=== PATIENT | female | born 1955 | race Caucasian/White ===

== ENCOUNTER → 2016-12-09 | Outpatient (CLI) | payer BC ==
--- NOTE | 2016-12-09 19:37 | EST ---
EXERCISE STRESS No dictation, hang up job MMODL / IJN: [id number] /
--- NOTE | 2016-12-09 19:46 | ECHOS ---
STRESS ECHOCARDIOGRAM Ms. Garcia is a 61 year old female with history of smoking, COPD, being evaluated for chest pain and shortness of breath. Baseline EKG showed sinus rhythm and normal [place] and QRS duration. Blood pressure at rest was 114/57, pulse rate 72. The patient walked on Erlin protocol for 8 minutes and 45 seconds achieving a maximum rate of 147 with blood pressure 198/67. EKGs taken during and after exercise did not reveal any changes to suggest ischemia. FINAL IMPRESSION: 1. Negative stress test. 2. Negative stress echo. MMODL / IJN: [id number] /
== END ==
LOC: RADNMMAIN 08:51
PROVIDERS: ATTEND Family Medicine
DX: R07.9 Chest pain, unspecified (principal)
CPT/HCPCS: 93017; 93350

== ENCOUNTER → 2017-07-28 | Outpatient (CLI) | payer BC ==
--- NOTE | 2017-07-28 12:19 | US ---
EXAMINATION TYPE: US abdomen complete DATE OF EXAM: 07/28/2017 COMPARISON: NONE CLINICAL HISTORY: R10.11 Right Upper Quad pain. EXAM MEASUREMENTS: Liver Length: 13.0 cm Gallbladder Wall: 0.5 cm CBD: 0.7 cm Spleen: 9.7 cm Right Kidney: 11.4 x 4.6 x 5.2 cm Left Kidney: 10.9 x 4.7 x 4.3 cm Pancreas: Portions visualized wnl, partially obscured by bowel gas Liver: wnl Gallbladder: thickened wall, some echogenic foci in wall, stone seen fundally Evidence for sonographic Keen's sign: no CBD: Minimally dilated Spleen: wnl Right Kidney: No hydronephrosis or masses seen Left Kidney: No hydronephrosis or masses seen Upper IVC: wnl Abd Aorta: bifurcation obscured by overlying bowel gas, otherwise wnl The liver is homogenous. The intrahepatic portion of the IVC and visualized proximal and mid abdomin al aorta are within normal limits. Distal aorta bifurcation is obscured by overlying bowel gas. Gallb ladder is seen with diffuse prominent and mildly thickened up to 5 mm. No shadowing mobile gallstone s or pericholecystic fluid is identified. Common bile duct is unremarkable. The visualized portions of the pancreas are homogenous. The spleen is unremarkable. Kidneys are symmetric and free of hydro nephrosis. No renal lesions are seen. IMPRESSION: No gallstones or convincing secondary ultrasound evidence for acute cholecystitis. Mild d iffuse gallbladder wall thickening noted which has fairly broad differential including gallbladder ne oplasm. Consider surgical referral. Advise at minimum ultrasound follow-up in 3-6 months time to reas sess.
== END ==
LOC: RADUSWWP 09:30
PROVIDERS: ATTEND Family Medicine
DX: K82.9 Disease of gallbladder, unspecified (principal)
CPT/HCPCS: 76700

== ENCOUNTER 2017-10-12 10:34 | Day surgery (SDC) | payer BC ==
[2017-10-04 13:41] VITALS: BMI 28.8
--- NOTE | 2017-10-12 07:26 | P.GSHP ---
History of Present Illness H&P Date: 10/12/17 CHIEF COMPLAINT: Cholecystitis HISTORY OF PRESENT ILLNESS: The patient is a 62-year-old female who presents with history of epigastric including right upper quadrant abdominal pain. She underwent diagnostic studies for her gallbladder. Separately her clinical picture was consistent with cholecystitis. Now she presents for surgical intervention. PAST MEDICAL HISTORY: Please see list PAST SURGICAL HISTORY: Please see list MEDICATIONS: Please see list ALLERGIES: Denies. SOCIAL HISTORY: No illicit drug use FAMILY HISTORY: Pertinent for gallbladder disease REVIEW OF ORGAN SYSTEMS: CONSTITUTIONAL: No reports of fevers or chills. HEENT: Denies any troubles with the vision or hearing. HEMATOLOGIC: No personal or family history of DVTs or pulmonary emboli. PHYSICAL EXAM: VITAL SIGNS: Afebrile vital signs stable GENERAL: Well-developed pleasant in no acute distress. HEENT: No scleral icterus. Extraocular movements grossly intact. Moist buccal mucosa. NECK: Supple without lymphadenopathy. CHEST: Unlabored respirations. Equal bilateral excursions. CARDIOVASCULAR: Regular rate regular rhythm rhythm. Distal 2+ pulses. ABDOMEN: Soft, nondistended. Tender along the epigastrium and right upper quadrant. MUSCULOSKELETAL: No clubbing, cyanosis, or edema. NEURO: Cranial nerves II to XII within normal limits. No focal or lateralizing signs. PSYCH: Alert and oriented to person, place and time. ASSESSMENT: 1. Epigastric and right upper quadrant abdominal pain 2. Chronic cholecystitis PLAN: 1. Will need a robotic cholecystectomy possible open. Benefits and risks were described. 2. Heparin for DVT prophylaxis 5000 units. 3. Antibiotic prophylaxis. Past Medical History Past Medical History: Asthma, Thyroid Disorder Additional Past Medical History / Comment(s): Intermittent upper abd pain History of Any Multi-Drug Resistant Organisms: None Reported Past Surgical History: Section Past Anesthesia/Blood Transfusion Reactions: Postoperative Nausea & Vomiting ( PONV) Smoking Status: Former smoker - Past Family History Mother Family Medical History: No Reported History Medications and Allergies Home Medications Medication Instructions Recorded Confirmed Type Albuterol Nebulized [Ventolin 2.5 mg INHALATION BID 10/04/17 10/04/17 History Nebulized] Levothyroxine Sodium [Synthroid] 125 mcg PO QAM 10/04/17 10/04/17 History Allergies Allergy/AdvReac Type Severity Reaction Status Date / Time No Known Allergies Allergy Verified 10/04/17 10:57
[~2017-10-12 10:34] MED LIST: DEXAMETHASONE SOD PHOSPHATE 10 MG/ML 1 ML VIAL IV ONE; HEPARIN SODIUM,PORCINE 5,000 UNIT/ML 1 ML VIAL SQ ONE; INDOCYANINE GREEN 25 MG VIAL IV STA; LACTATED RINGERS 1,000 ML IV SCH; ONDANSETRON 4 MG/2 ML VIAL IVP ONE; ceFAZolin IN SWFI 2 GM/20 ML SYRINGE IVP ONE
[2017-10-12] MEDS ORDERED: LACTATED RINGERS 1,000 ML IV ONE ×2 (10:50→13:50)
[2017-10-12] MEDS ORDERED: LIDOCAINE 1% 20 ML VIAL (10MG/ML) FOR IV START INTRADERMA ONE (10:54)
[2017-10-12] MEDS ORDERED: DEXAMETHASONE SOD PHOS (MDV) 100 MG/10 ML VIAL IVP ONE (10:55)
[2017-10-12] MEDS ORDERED: ALBUTEROL NEBULIZED 2.5 MG/3 ML INHALATION STA (11:26)
[2017-10-12] MEDS ORDERED: MIDAZOLAM 2 MG/2 ML VIAL IVP ONE (11:31)
[2017-10-12] MEDS ORDERED: GLYCOPYRROLATE 0.2 MG/ML 2 ML VIAL ONE (12:50)
[2017-10-12] MEDS ORDERED: KETOROLAC 30 MG/ML 1 ML VIAL ONE (12:50)
[2017-10-12] MEDS ORDERED: MIDAZOLAM 2 MG/2 ML VIAL ONE (12:50)
[2017-10-12] MEDS ORDERED: ROCURONIUM BROMIDE 10 MG/ML 10 ML VIAL IV ONE (12:50)
[2017-10-12] MEDS ORDERED: SUCCINYLCHOLINE CHLORIDE 100 MG/5 ML SYR IV ONE (12:50)
[2017-10-12] MEDS ORDERED: LIDOCAINE 1% INJ 10MG/ML (20 ML MDV) ONE (12:50)
[2017-10-12] MEDS ORDERED: INDOCYANINE GREEN 25 MG VIAL IV ONE (12:50)
[2017-10-12] MEDS ORDERED: PROPOFOL 10 MG/ML 20 ML VIAL IV ONE (12:50)
[2017-10-12] MEDS ORDERED: ONDANSETRON 4 MG/2 ML VIAL ONE (12:50)
[2017-10-12] MEDS ORDERED: fentaNYL (PF) 50 MCG/ML 2 ML AMP ONE (12:50)
[2017-10-12] MEDS ORDERED: NEOSTIGMINE 1 MG/ML 10 ML VIAL ONE (12:50)
[2017-10-12] MEDS ORDERED: BUPIVACAINE (PF) 0.5% 30 ML VIAL SQ ONE (13:12)
--- NOTE | 2017-10-12 13:57 | P.OP ---
Date of Procedure: 10/12/17 Description of Procedure: SURGEON: AUGUSTUS QUINONEZ MD [employer] COUNSEL: LACEY SEGOVIA PREOPERATIVE DIAGNOSES: 1. Right upper quadrant abdominal pain 2. Chronic cholecystitis 3. Asthma 4. Hypothyroidism POSTOPERATIVE DIAGNOSES: 1. Right upper quadrant abdominal pain 2. Chronic cholecystitis 3. Asthma 4. Hypothyroidism OPERATION: Robotic-assisted da Delmar Xi laparoscopic cholecystectomy, multiport with FIREFLY ESTIMATED BLOOD LOSS: 5 mL. SPECIMENS REMOVED: Gallbladder. COMPLICATIONS: None. OPERATIVE FINDINGS: 1. Chronic cholecystitis INDICATIONS: The patient is a 62-year-old female who presents with cholelcystitis. Surgical intervention with a laparoscopic cholecystectomy was described at length including injury to the biliary tree, bleeding, infection, need for further surgery. Informed consent was obtained. Robotic assisted laparoscopic approach was described. Benefits and risks of the procedure including but not limited to bleeding, infection, injury to the biliary tree was described. Informed consent was obtained. DESCRIPTION OF PROCEDURE: Patient was brought to the operating room, placed in supine position. After general induction, the abdomen had been prepped and draped in standard sterile fashion. The robotic da Delmar XI system was primed. After a timeout protocol was performed, the patient had been prepped and draped in standard sterile fashion. The patient was injected with indocyanine green. A 5 mm 0 degrees laparoscopic trocar entry was performed along the left upper quadrant. The abdomen insufflated to 15 mmHg pressure which she tolerated well. Diagnostic laparoscopy demonstrated no injury to bowel viscera or mesentery. The liver surface was unremarkable. Next, two 8 mm robotic ports were placed along the right upper abdomen. The camera 8-mm port was maintained along the epigastrium. Another 8 mm port was placed along the left upper abdominal wall after exchanging the 5 mm port. Please note that the ports were placed at least 10 to 15 cm away from the target anatomy of the gallbladder. The robot was docked along the left lateral abdomen. The patient was repositioned in reverse Trendelenburg position. Using a grasper for arm 3, a grasper for arm 4, including hook cautery for arm 1 , the robotic system was docked and primed as described. Instruments were interchanged by the printing assistant including hook cautery, Bovie cautery and clip appliers. I had sat at the console. Adhesions were identified along the infundibulum of the gallbladder and addressed using hook cautery. The gallbladder fundus was retracted over the dome of the liver. Initial attention was brought to the infundibulum which was gently retracted in the inferior lateral approach. Using a grasper, the cystic duct including the cystic artery was carefully skeletonized. FIREFLY was used to identify the cystic artery and cystic structures. Large PLASTIC clips were used throughout the entire case. Using a clip industrial relations director 2 clips were placed proximally, and 1 clip was placed distally along the cystic duct and then cauterized with the cautery. Again care was taken to avoid any injury to the biliary tree as the common bile duct was clearly visualized during this portion of dissection. Next, the cystic artery was similarly clipped and cauterized. Electro-Bovie cautery was used to remove the gallbladder from the hepatic fossa. Hemostasis was checked and found to be adequate. The robot was undocked. I re-scrubbed into the case. Using a 10 mm Endo Catch bag via the left upper quadrant incision, the specimen was removed from the abdominal cavity. All pneumoperitoneum instruments were evacuated from the abdominal cavity. The incisions were reapproximated using 4-0 Monocryl in an interrupted subcuticular fashion. Fascial defects were less than 8 mm in size. Please note along the trocar sites, local anesthetic was placed as a field block prior to insertion of all instruments. Liquid glue was applied to the skin. At the end of the procedure needle, sponge, and instrument count had been verified correct by the surgical pathologist. The patient was transferred to postanesthesia care unit in stable condition. Intraoperative films were shared with the patient's family who were very pleased with the level of care. Console time 20 minutes Plan - Discharge Summary New Discharge Prescriptions: New HYDROcodone/APAP 5-325MG [Hamilton 5-325] 1 tab PO Q4HR PRN 3 Days #18 tab PRN Reason: Pain Ibuprofen [Motrin] 600 mg PO Q8HR PRN #20 tab PRN Reason: Pain No Action Levothyroxine Sodium [Synthroid] 125 mcg PO QAM Albuterol Nebulized [Ventolin Nebulized] 2.5 mg INHALATION BID Discharge Medication List Albuterol Nebulized [Ventolin Nebulized] 2.5 mg INHALATION BID 10/04/17 [History ] Levothyroxine Sodium [Synthroid] 125 mcg PO QAM 10/04/17 [History] HYDROcodone/APAP 5-325MG [Hamilton 5-325] 1 tab PO Q4HR PRN 3 Days #18 tab [Rx] Ibuprofen [Motrin] 600 mg PO Q8HR PRN #20 tab 10/12/17 [Rx] Patient Instructions/Handouts: Laparoscopic Cholecystectomy (DC) Activity/Diet/Wound Care/Special Instructions: May shower. No bath tub soaks. No lifting over 4 pounds in 1 week Discharge Disposition: HOME SELF-CARE
[2017-10-12] MEDS: HYDROmorphone 0.5 MG/0.5 ML SYRINGE IVP PRN ×2 (14:06→14:11)
[2017-10-12 14:17] VITALS: TEMP 97.3
[2017-10-12] MEDS ORDERED: diphenhydrAMINE 50 MG/ML 1 ML VIAL IVP ONE (14:21)
[2017-10-12] MEDS ORDERED: ALBUTEROL NEBULIZED 2.5 MG/3 ML INHALATION ONE (14:25)
[2017-10-12 14:49] VITALS: RESP 16
[2017-10-12] MEDS ORDERED: HYDROcodone/APAP 5-325MG 1 EACH TAB PO ONE (15:30)
[2017-10-12 15:59] VITALS: BP 125/74; PULSE 59
== END 2017-10-12 16:39 | disposition home or self-care (01) ==
LOC: OR 10:34
PROVIDERS: ATTEND Surgery Plastic and Reconstructive Surgery
DX: K81.1 Chronic cholecystitis (principal); J45.909 Unspecified asthma, uncomplicated; E03.9 Hypothyroidism, unspecified; Z79.890 Hormone replacement therapy; Z79.51 Long term (current) use of inhaled steroids; Z87.891 Personal history of nicotine dependence
CPT/HCPCS: 94640; 88304; 47562; J2250; J1200; J1644; J2710; J2405; J2001; J3010; J1885; J1100; J0330; J2704; J1170; J0690

== ENCOUNTER → 2017-11-14 | Outpatient (CLI) | payer BC ==
--- NOTE | 2017-11-14 16:04 | US ---
EXAMINATION TYPE: US abdomen complete DATE OF EXAM: 11/14/2017 COMPARISON: US CLINICAL HISTORY: K91.5 Post elyse syndrome; one episode of RUQ pain after eating [employer] [place]; po st laparoscopy/cholecystectomy October 2017 EXAM MEASUREMENTS: Liver Length: 12.8 cm Gallbladder Wall: surgically removed CBD: 0.6 cm Spleen: 9.4 cm Right Kidney: 10.5 x 4.5 x 4.9 cm Left Kidney: 10.2 x 4.9 x 4.2 cm Pancreas: wnl Liver: wnl Gallbladder: surgically removed Evidence for sonographic Keen's sign: no CBD: wnl Spleen: wnl Right Kidney: No hydronephrosis or masses seen Left Kidney: No hydronephrosis or masses seen Upper IVC: wnl Abd Aorta: wnl IMPRESSION: 1. Normal postcholecystectomy abdomen ultrasound.
== END | disposition home or self-care (01) ==
LOC: RADUSWWP 10:47
PROVIDERS: ATTEND Family Medicine
DX: K91.5 Postcholecystectomy syndrome (principal); Z90.49 Acquired absence of other specified parts of digestive tract
CPT/HCPCS: 76700

== ENCOUNTER → 2021-01-29 | Outpatient (CLI) | payer BC ==
--- NOTE | 2021-02-02 09:21 | MM ---
Reason for exam: screening (asymptomatic). Last mammogram was performed 7 years and 3 months ago. History: Patient is postmenopausal. Took hormonal contraceptives for 2 years. Physical Findings: A clinical breast exam by your physician is recommended on an annual basis and results should be correlated with mammographic findings. MG Screening Mammo w CAD Bilateral CC and MLO view(s) were taken. XCCL view(s) were taken of the right breast. Prior study comparison: November 12, 2013, bilateral MG screening mammo w CAD. There are scattered fibroglandular densities. Finding: There are intermediate concern, suspicious, fine grouped/clustered calcifications in the upper outer quadrant, middle position of the right breast. New finding since November 12, 2013. ASSESSMENT: Incomplete: need additional imaging evaluation, BI-RAD 0 RECOMMENDATION: Special view mammogram of the right breast. [facility] will attempt to contact patient to return for supplemental views.
== END | disposition home or self-care (01) ==
LOC: RADMAMWWP 15:24
PROVIDERS: ATTEND Family Medicine
DX: Z12.31 Encounter for screening mammogram for malignant neoplasm of breast (principal); Z78.0 Asymptomatic menopausal state
CPT/HCPCS: 77067

== ENCOUNTER → 2021-02-19 | Outpatient (CLI) | payer BC ==
--- NOTE | 2021-02-19 14:51 | USB ---
EXAMINATION TYPE: US breast limited RT DATE OF EXAM: 02/19/2021 COMPARISON: Mammogram same date,, 01/29/2021, 11/12/2013 CLINICAL HISTORY: R92.8 abnormal mammogram. Findings: The right breast was scanned with ultrasound from 9-12 o'clock and in the axilla without sonographic correlate for the right breast mass with calcifications seen on mammogram. IMPRESSION: No definite sonographic correlate for right breast mass and calcifications seen on mammogram. Stereot actic biopsy is recommended. BI-RADS 4, suspicious.
--- NOTE | 2021-02-22 09:14 | MM ---
Reason for exam: additional evaluation requested from abnormal screening. Last mammogram was performed 1 month ago. History: Patient is postmenopausal. Took hormonal contraceptives for 2 years. Physical Findings: Nurse did not find any significant physical abnormalities on exam. MG Work Up Mamm w CAD RT Spot compression CC, spot compression MLO, CC with magnification, MLO with magnification, and ML view(s) were taken of the right breast. Prior study comparison: January 29, 2021, bilateral MG screening mammo w CAD. November 12, 2013, bilateral MG screening mammo w CAD. There are scattered fibroglandular densities. There is a 1.6cm mass in the right upper outer quadrant posterior depth with heterogeneous calcifications and ultrasound is recommended. These results were verbally communicated with the patient and result sheet given to the patient on 02/19/21. ASSESSMENT: Incomplete: need additional imaging evaluation, BI-RAD 0 RECOMMENDATION: Ultrasound of the right breast.
== END | disposition home or self-care (01) ==
LOC: RADMAMWWP 13:29
PROVIDERS: ATTEND Family Medicine
DX: N63.11 Unspecified lump in the right breast, upper outer quadrant (principal); R92.1 Mammographic calcification found on diagnostic imaging of breast
CPT/HCPCS: 77065

== ENCOUNTER → 2021-03-15 | Day surgery (SDC) | payer BC ==
[2021-03-15 07:09] VITALS: RESP 16; TEMP 98.6
[2021-03-15 08:40] VITALS: BP 165/79; PULSE 81
--- NOTE | 2021-03-15 11:24 | MM ---
Stereotactic Mammotome core biopsy right breast. HISTORY: microcalcifications The microcalcifications in question within the right breast were targeted by the undersigned. Procedure was performed by the undersigned. Informed consent was obtained and all of the patients questions were answered. The standard sterile technique was utilized and appropriate local anesthesia was obtained with 1% licocaine. Mammotome probe was advanced and multiple core samples were obtained and sent to pathology for interpretation. Microclip marker was deployed at the site of biopsy. Post procedural mammogram demonstrates appropriate deployment of radiopaque clip marker. The patient tolerated the procedure well and left the department in stable condition. Pathology results are pending. IMPRESSION: Successful stereotactic core biopsy right breast with pathology results pending. 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 See Surgical Pathology Cancer Case Summary and Comment. Recommendation Surgical consult of the right breast. BERNADINE
== END ==
LOC: RADMAMWWP 06:58
PROVIDERS: ATTEND Surgery
DX: D05.11 Intraductal carcinoma in situ of right breast (principal)
CPT/HCPCS: 88305; 88342; 88341; 19081; A4648; J2001

== ENCOUNTER 2021-04-23 06:23 | Day surgery (SDC) | payer BC ==
[2021-04-16 11:39] VITALS: BMI 29.8
[~2021-04-23 06:23] MED LIST changes: +ACETAMINOPHEN TAB 500 MG TAB PO PRN; -DEXAMETHASONE SOD PHOSPHATE 10 MG/ML 1 ML VIAL IV ONE; +DEXAMETHASONE SOD PHOSPHATE 4 MG/ML 1 ML VIAL IV ONE; -HEPARIN SODIUM,PORCINE 5,000 UNIT/ML 1 ML VIAL SQ ONE; +HEPARIN SODIUM,PORCINE/PF 5,000 UNIT/0.5 ML SYRINGE SQ PRN; -INDOCYANINE GREEN 25 MG VIAL IV STA; +LIDOCAINE 1% (10MG/ML) FOR IV START INTRADERMA PRN; +MIDAZOLAM 2 MG/2 ML VIAL IV PRN; +Pre Op ABX Message 1 EACH MISC MISCELLANE ONE; -ceFAZolin IN SWFI 2 GM/20 ML SYRINGE IVP ONE
[2021-04-23 06:50] VITALS: RESP 16
[2021-04-23] MEDS ORDERED: ALPRAZolam 0.25 MG TAB ONE (06:54)
[2021-04-23] MEDS ORDERED: SCOPOLAMINE 1.5MG/72HR PATCH TRANSDERM ONE (07:11)
[2021-04-23] MEDS ORDERED: LIDOCAINE 1% INJ 10MG/ML (20 ML MDV) SQ ONE (08:09)
[2021-04-23] MEDS ORDERED: DEXAMETHASONE SOD PHOSPHATE 4 MG/ML 1 ML VIAL IVP ONE (08:45)
[2021-04-23] MEDS ORDERED: PROPOFOL 10 MG/ML 20 ML VIAL IV ONE (08:46)
[2021-04-23] MEDS ORDERED: LIDOCAINE 1% INJ 10MG/ML (20 ML MDV) ONE (08:46)
[2021-04-23] MEDS ORDERED: MIDAZOLAM 2 MG/2 ML VIAL ONE (08:46)
[2021-04-23] MEDS ORDERED: fentaNYL (PF) 50 MCG/ML 2 ML AMP ONE (08:46)
[2021-04-23] MEDS ORDERED: SODIUM CHLORIDE 0.9% 100 ML with ceFAZolin 2,000 MG IV ONE ×2 (09:00)
[2021-04-23] MEDS ORDERED: BUPIVACAINE (PF) 0.25% 30 ML VIAL SQ ONE (09:17)
[2021-04-23 09:53] VITALS: TEMP 96.9
[2021-04-23] MEDS ORDERED: NALOXONE 0.4 MG/ML 1 ML VIAL IV PRN (10:00)
[2021-04-23] MEDS ORDERED: HYDROcodone/APAP 5-325MG 1 EACH TAB PO PRN (10:00)
--- NOTE | 2021-04-23 10:03 | P.OP ---
Date of Procedure: 04/23/21 Procedure(s) Performed: PREOPERATIVE DIAGNOSIS: Right breast cancer POSTOPERATIVE DIAGNOSIS: Same PROCEDURE: Right Breast wire localization lumpectomy SURGEON: Noé EBL: Minimal ANESTHESIA: General COMPLICATIONS: None OPERATIVE PROCEDURE: Patient was placed on the operating room table in the supine position. The wire entrance site was then addressed. This was present at the 9:00 location. A curvilinear incision was made adjacent to the wire entrance site. I followed the wire down into the breast tissue. An adequate lumpectomy specimen then took place around the wire. Margins of 1.5-2 cm worth attempted to be achieved. Palpation of the specimen suggested that the posterior and medial margins were somewhat close. I took an additional margin posteriorly and medially and these margins were painted the appropriate color on the new margin side. The initial specimen was also painted the appropriate 6 colors. Clips were used to identify the lumpectomy cavity. The clip was confirmed to be within the lumpectomy specimen by radiology. The subcutaneous tissues were closed using 3-0 Vicryl sutures. The skin was closed using a running 4-0 Monocryl stitch. Skin glue was then applied. DISPOSITION: Stable to recovery room
[2021-04-23] MEDS: HYDROmorphone 0.5 MG/0.5 ML SYRINGE IVP PRN ×3 (10:05→10:21)
[2021-04-23] MEDS ORDERED: ALBUTEROL NEBULIZED 2.5 MG/3 ML INHALATION ONE (10:37)
[2021-04-23 11:21] VITALS: BP 131/79; PULSE 75
--- NOTE | 2021-04-23 15:52 | MM ---
EXAMINATION TYPE: MG pre op needle loc RT DATE OF EXAM: 04/23/2021 COMPARISON: NONE CLINICAL HISTORY: DCIS by core biopsy TECHNIQUE: Needle localization with wire placement and surgical excision of area of concern in the ri t breast. FINDINGS: The procedure of needle localization with wire placement for surgical excision was explaine d to the patient. Risk, benefits, and alternatives were discussed. An informed consent was then obt ained. A timeout was performed. The overlying skin was prepped and draped in usual sterile fashion. Lidocaine 1% was used as anesthe tic into the skin and subcutaneous tissue up to the level of area of concern. A 7 cm needle was used . This was placed via a lateral approach under mammographic guidance. Subsequent 90 degrees mammogr am show the needle to be in satisfactory position relative to the targeted area. Targeted area includ es both the core marker clip and calcifications which remained present following the prior biopsy. Th e wire was placed through the needle and the needle was withdrawn. The wire was fixed to patient's s kin. Images were marked for surgeon. The patient tolerated the procedure well without any immediate complication. Specimen: The wire and the targeted calcifications and core marker are identified within the specimen mammogram. Report was called to the OR. IMPRESSION: 1. Successful wire localization and excision. Recommendations: 1. Recommendations are pending pathology results.
== END 2021-04-23 11:57 | disposition home or self-care (01) ==
LOC: OR 06:23
PROVIDERS: ATTEND Surgery
DX: C50.911 Malignant neoplasm of unspecified site of right female breast (principal)
CPT/HCPCS: 19281; 76098; J2250; J1100; J2405; J0690; J2001; J3010; J2704; J1170; J1644

== ENCOUNTER 2021-06-03 11:15 | Day surgery (SDC) | payer BC ==
[~2021-06-03 11:15] MED LIST changes: -ACETAMINOPHEN TAB 500 MG TAB PO PRN; +HYDROmorphone 0.5 MG/0.5 ML SYRINGE IVP PRN; -LIDOCAINE 1% (10MG/ML) FOR IV START INTRADERMA PRN; -MIDAZOLAM 2 MG/2 ML VIAL IV PRN; +ONDANSETRON 4 MG/2 ML VIAL IVP PRN
[2021-06-03] MEDS ORDERED: LACTATED RINGERS 1,000 ML IV ONE ×3 (11:59)
--- NOTE | 2021-06-03 12:38 | P.GSHP ---
History of Present Illness H&P Date: 06/03/21 Chief Complaint: Right breast cancer 66-year-old female known to our service. Underwent right breast lumpectomy 04/23. Patient found to have a 1.7 cm low to intermediate grade DCIS. Patient had close margins both anteriorly and posteriorly. New posterior margin was taken at the time of surgery. Patient requires re-lumpectomy of the anterior margin. Patient had canceled a surgery previously for I believe Covid exposure. Past Medical History Past Medical History: Asthma, Cancer, COPD, Thyroid Disorder Additional Past Medical History / Comment(s): RT BREAST CANCER, constipation, History of Any Multi-Drug Resistant Organisms: None Reported Past Surgical History: Bladder Surgery, Breast Surgery, Section, Cholecystectomy, Hysterectomy, Tonsillectomy Additional Past Surgical History / Comment(s): CYSTOCELE/RECTOCELE/HYSTERECTOMY/BLADDER SLING-03/24/21. REVISION BLADDER SLING 04/14/21-DEANN SEGURA. rt breast lumpectomy 04/23/21 Past Anesthesia/Blood Transfusion Reactions: Postoperative Nausea & Vomiting (PONV) Additional Past Anesthesia/Blood Transfusion Reaction / Comment(s): vomiting all day after last surgery 04/2021 Smoking Status: Former smoker - Past Family History Mother Family Medical History: Diabetes Mellitus Brother(s) Family Medical History: Deep Vein Thrombosis (DVT) Medications and Allergies Home Medications Medication Instructions Recorded Confirmed Type Albuterol Nebulized [Ventolin 2.5 mg INHALATION BID PRN 10/04/17 06/03/21 History Nebulized] Levothyroxine Sodium [Synthroid] 125 mcg PO QAM 10/04/17 06/03/21 History Fluticasone/Vilanterol [Breo 1 inhalation PO Q24HR 03/05/21 06/03/21 History Ellipta 100-25 Mcg Inhaler] Mometasone/Formoterol [Dulera 100 1 puff PO DIRECTED PRN 06/02/21 06/03/21 History Mcg-5 Mcg Inhaler] Trospium Chloride [Sanctura XR] 60 mg PO DAILY 06/02/21 06/03/21 History Allergies Allergy/AdvReac Type Severity Reaction Status Date / Time No Known Allergies Allergy Verified 06/03/21 12:08 Surgical - Exam Vital Signs Temp Pulse Resp BP Pulse Ox 97.7 F 85 16 140/84 96 06/03/21 12:16 06/03/21 12:16 06/03/21 12:16 06/03/21 12:16 06/03/21 12:16 Physical exam: General: Well-developed, well-nourished HEENT: Normocephalic, sclerae nonicteric Right breast: Recent scar noted, no adenopathy Left breast: No masses, no adenopathy Abdomen: Nontender, nondistended Extremities: No edema Neuro: Alert and oriented Assessment and Plan (1) DCIS (ductal carcinoma in situ) of breast Narrative/Plan: Will proceed with right breast re-lumpectomy anterior margin at this time. Risks of bleeding, infection, scarring, findings of additional malignancy reviewed, positive margins, possible need for further procedures reviewed. She understands and wishes to proceed. Current Visit: Yes Status: Acute Code(s): D05.10 - INTRADUCTAL CARCINOMA IN SITU OF UNSPECIFIED BREAST SNOMED Code(s): 313724454
[2021-06-03] MEDS ORDERED: fentaNYL (PF) 50 MCG/ML 2 ML AMP ONE (13:55)
[2021-06-03] MEDS ORDERED: diphenhydrAMINE 50 MG/ML 1 ML VIAL ONE ×2 (13:55→15:41)
[2021-06-03] MEDS ORDERED: LIDOCAINE 1% INJ 10MG/ML (20 ML MDV) ONE (13:55)
[2021-06-03] MEDS ORDERED: PROPOFOL 10 MG/ML 20 ML VIAL IV ONE (13:55)
[2021-06-03] MEDS ORDERED: MIDAZOLAM 2 MG/2 ML VIAL ONE (13:55)
[2021-06-03] MEDS ORDERED: BUPIVACAIN-EPI 0.25%-1:200,000 30 ML VIAL SQ ONE ×2 (13:59→14:16)
[2021-06-03] MEDS ORDERED: SODIUM CHLORIDE 0.9% 100 ML with ceFAZolin 2 GM IV ONE ×2 (14:15)
[2021-06-03] MEDS ORDERED: NALOXONE 0.4 MG/ML 1 ML VIAL IV PRN (14:42)
--- NOTE | 2021-06-03 14:45 | P.OP ---
Date of Procedure: 06/03/21 Procedure(s) Performed: PREOPERATIVE DIAGNOSIS: Right breast cancer POSTOPERATIVE DIAGNOSIS: Same PROCEDURE: Right Breast re-lumpectomy SURGEON: Noé EBL: 20 mL ANESTHESIA: General COMPLICATIONS: None OPERATIVE PROCEDURE: Patient was placed on the operating room table in the supine position. The patient's right breast was prepped and draped sterilely. The previous incision was re-incised. Entrance into the lumpectomy cavity took place. The seroma fluid was evacuated. The anterior margin was then excised using electrocautery. This measured 5 x 5 x 1 cm. The new margin was painted blue. Clips were used to delineate the new margins in the lumpectomy itself. Irrigation took place. No bleeding was seen. The subcutaneous tissues were closed using 3-0 Vicryl sutures. The skin was closed using a running 4-0 Monocryl stitch. Skin glue was then applied. DISPOSITION: Stable to recovery room
[2021-06-03 15:03] VITALS: TEMP 97
[2021-06-03] MEDS ORDERED: diphenhydrAMINE 50 MG/ML 1 ML VIAL IVP ONE (15:45)
[2021-06-03] MEDS ORDERED: ONDANSETRON 4 MG/2 ML VIAL IVP ONE (16:30)
[2021-06-03 16:48] VITALS: RESP 20
[2021-06-03 17:04] VITALS: BP 136/81; PULSE 70
== END 2021-06-03 17:44 | disposition home or self-care (01) ==
LOC: OR 11:15
PROVIDERS: ATTEND Surgery
DX: D05.11 Intraductal carcinoma in situ of right breast (principal); J44.9 Chronic obstructive pulmonary disease, unspecified; I10 Essential (primary) hypertension; E07.9 Disorder of thyroid, unspecified; K59.00 Constipation, unspecified; Z98.890 Other specified postprocedural states; Z98.891 History of uterine scar from previous surgery; Z90.49 Acquired absence of other specified parts of digestive tract; Z90.89 Acquired absence of other organs; Z90.710 Acquired absence of both cervix and uterus; Z87.891 Personal history of nicotine dependence; Z79.899 Other long term (current) drug therapy; Z79.890 Hormone replacement therapy; Z83.3 Family history of diabetes mellitus
CPT/HCPCS: 88307; 19301; J2250; J1200; J0690; J2405; J2001; J3010; J2704; J1170

== ENCOUNTER → 2022-01-19 | Outpatient (CLI) | payer BC ==
--- NOTE | 2022-01-19 09:53 | MM ---
Reason for Exam: Hx of breast cancer, conservation therapy. Last screening mammogram was performed 12 month(s) ago. Patient History: Menarche at age 16. First Full-Term at age 21. Hysterectomy at age 66. Postmenopausal. Patient has history of breast feeding. Breast cancer, right, age 66. Previous chest radiation therapy at age 66. Patient used Hormonal Contraceptives for 2 years. 04/23/2021, Lumpectomy on the Right side. 04/23/2021, Malignant Core Biopsy on the right side. 03/15/2021, Malignant Core Biopsy on the right side. Prior Study Comparison: 11/12/2013 Bilateral Screening Mammogram, [facility]. 01/29/2021 Bilateral Screening Mammogram, [facility]. 02/19/2021 Right Diagnostic Mammogram, [facility]. Tissue Density: There are scattered fibroglandular densities. Findings: Analyzed By CAD. Postsurgical and posttreatment changes right breast. No recurrent microcalcifications are seen. No other discrete abnormality identified. Ongoing shorter term follow-up recommended on the right. Overall Assessment: Probably benign, BI-RAD 3 Management: Diagnostic Mammogram of the right breast in 6 months. To assess for any evolving posttreatment change. Patient should continue monthly self breast exams. Results were given to the patient verbally at the time of exam. Electronically signed and approved by: Jez Valles M.D. Radiologist
== END | disposition home or self-care (01) ==
LOC: RADMAMWWP 08:50
PROVIDERS: ATTEND Radiology Radiation Oncology
DX: D05.11 Intraductal carcinoma in situ of right breast (principal); Z78.0 Asymptomatic menopausal state; Z85.3 Personal history of malignant neoplasm of breast; Z98.890 Other specified postprocedural states
CPT/HCPCS: 77066

== ENCOUNTER → 2022-03-04 | Outpatient (CLI) | payer BC ==
--- NOTE | 2022-03-04 13:57 | BD ---
EXAMINATION TYPE: Axial Bone Density DATE OF EXAM: 03/04/2022 COMPARISON: 11-12-2013 CLINICAL HISTORY: 67 years year old Female. 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 Secondary Osteoporosis: YES 2. Hyperthyroidism: YES RISK FACTORS HISTORY OF: Family History of Osteoporosis: UNKNOWN Active: YES Postmenopausal woman: YES MEDICATIONS: Prednisone or other steroids: YES How Long: OFF AND ON FOR 10 YEARS Thyroid Medications: Which medication: Levothyroxine How Lon YEARS Additional Medications: HORMONE GRISELDA Additional History: RT BREAST CANCER WITH RADIATION EXAM MEASUREMENTS: Bone mineral densitometry was performed using the [employer] System. Bone mineral density as measured about the Lumbar spine is: ----- L1-L4(G/cm2): 1.195 T Score Values are as follows: ----- L1: -0.5 ----- L2: -0.6 ----- L3: 0.3 ----- L4: 1.1 ----- L1-L4: 1.1 Bone mineral density has: Decreased -16.7% since study of: 11-12-2013 Bone mineral density about the R hip (g/cm2): 1.120 Bone mineral density about the L hip (g/cm2): 1.106 T Score values are as follows: -----R Neck: 0.1 -----L Neck: -0.3 -----R Total: 0.9 -----L Total: 0.8 Bone mineral density has: Decreased -10% since study of: 11-12-2013 FRAX%s: The graph provided illustrates a 4.8% chance for a major osteoporotic fx and a 0.4% chance fo r the hips probability for fx in 10 years time. IMPRESSION: Normal (Values between +1 and -1 indicate normal bone mass). Consider repeating this study in 5 year s or sooner if there is some new clinical indication. NOTE: T-SCORE=SD OF THE YOUNG ADULT MEAN.
== END | disposition home or self-care (01) ==
LOC: RADBDWWP 10:46
PROVIDERS: ATTEND Internal Medicine Hematology & Oncology
DX: D05.11 Intraductal carcinoma in situ of right breast (principal); Z85.3 Personal history of malignant neoplasm of breast; Z79.52 Long term (current) use of systemic steroids; E05.90 Thyrotoxicosis, unspecified without thyrotoxic crisis or storm
CPT/HCPCS: 77080

== ENCOUNTER → 2022-07-27 | Outpatient (CLI) | payer BC ==
--- NOTE | 2022-07-27 10:31 | USB ---
Reason for Exam: Clinical finding. Patient History: Menarche at age 16. First Full-Term at age 21. Hysterectomy at age 66. Postmenopausal. Patient has history of breast feeding. Breast cancer, right, age 66. Previous chest radiation therapy at age 66. Patient used Hormonal Contraceptives for 2 years. 04/23/2021, Lumpectomy on the Right side. 04/23/2021, Malignant Core Biopsy on the right side. 03/15/2021, Malignant Core Biopsy on the right side. Technique: Method: Targeted. Prior Study Comparison: 01/29/2021 Bilateral Screening Mammogram, [facility]. 02/19/2021 Right Diagnostic Mammogram, [facility]. 02/19/2021 Right Diagnostic Ultrasound, [facility]. 01/19/2022 Bilateral MG diagnostic mammo w CAD DU, [facility]. Findings: The area of palpable concern of the right breast, the axilla of the right breast and the retroareolar of the right breast were scanned. No solid or cystic masses are identified. Overall Assessment: Negative, BI-RAD 1 Management: Diagnostic Mammogram of both breasts in 6 months. A clinical breast exam by your physician is recommended on an annual basis and results should be correlated with mammographic findings. This exam should not preclude additional follow-up of suspicious palpable abnormalities. Results were given to the patient verbally at the time of exam. Electronically signed and approved by: Juan Gaona D.O. Radiologis
--- NOTE | 2022-07-27 12:58 | MM ---
Reason for Exam: Follow-up at short interval from prior study. Last screening mammogram was performed 6 month(s) ago. Patient History: Menarche at age 16. First Full-Term at age 21. Hysterectomy at age 66. Postmenopausal. Patient has history of breast feeding. Breast cancer, right, age 66. Previous chest radiation therapy at age 66. Patient used Hormonal Contraceptives for 2 years. 04/23/2021, Lumpectomy on the Right side. 04/23/2021, Malignant Core Biopsy on the right side. 03/15/2021, Malignant Core Biopsy on the right side. Prior Study Comparison: 01/29/2021 Bilateral Screening Mammogram, [facility]. 02/19/2021 Right Diagnostic Mammogram, [facility]. 01/19/2022 Bilateral MG diagnostic mammo w CAD DU, [facility]. Tissue Density: Right: The breast tissue is heterogeneously dense. This may lower the sensitivity of mammography. Findings: Analyzed By CAD. Pattern appears stable. Multiple surgical clips from prior surgery is evident upper outer posterior right breast. Palpable abnormality marker is placed over the right breast. There may be some mild skin thickening near the surgical scar level. Underlying discrete suspicious mammographic abnormality is not evident. No suspicious groups of microcalcifications, spiculated or lobular masses, architectural distortion or other secondary signs of malignancy are mammographically apparent. Overall Assessment: Incomplete: need additional imaging evaluation, BI-RAD 0 Management: Diagnostic Breast Ultrasound of the right breast. A negative mammogram report should not preclude additional follow up of suspicious palpable abnormalities. Patient should continue monthly self breast exam. A clinical breast exam by your physician is recommended on an annual basis and results should be correlated with mammographic findings. Electronically signed and approved by: Juan Gaona D.O. Radiologis
== END | disposition home or self-care (01) ==
LOC: RADMAMWWP 09:32
PROVIDERS: ATTEND Radiology Radiation Oncology
DX: D05.11 Intraductal carcinoma in situ of right breast (principal); Z78.0 Asymptomatic menopausal state; Z92.3 Personal history of irradiation
CPT/HCPCS: 77061; 77065

== ENCOUNTER → 2024-01-13 | Outpatient (CLI) | payer MEDICARE ==
--- NOTE | 2024-01-15 14:41 | BMR ---
EXAM DATE: 01/15/2024 EXAM DESCRIPTION: MRI-Breast Bilat (W/WO Contrast) INDICATION: Previous history of right breast cancer with lateral breast pain. COMPARISON: PRIOR MRIs: None available. Correlation to mammograms: 01/23/2023, 07/27/2022. Correlation to ultrasound: 07/27/2022. CONTRAST: 8.0 cc Gadavist IV gadolinium contrast TECHNIQUE: Multiplanar multisequence MR imaging of both breasts was performed with a dedicated breast coil. Images were obtained before and after administration of IV gadolinium, using the standard breast mass protocol. Computer aided detection was utilized for interpretation. FINDINGS: LMP: Postmenopausal General breast composition: There are scattered areas of fibroglandular tissue Background parenchymal enhancement: Mild RIGHT BREAST: The T2 weighted series shows postsurgical changes.. Review of the dynamic series shows no early or abnormal enhancement. LEFT BREAST: The T2 weighted series shows no areas of abnormal signal intensity. Review of the dynamic series shows no early or abnormal enhancement. LYMPH NODES: There is no evidence of internal mammary or axillary adenopathy. Miscellaneous findings:Small hiatal hernia. IMPRESSION: RIGHT BREAST: No MR evidence of malignancy. LEFT BREAST: No MR evidence of malignancy. OVERALL ASSESSMENT -- BI-RADS 2: Benign ANNUAL SCREENING BREAST MRI IN ADDITION TO MAMMOGRAPHY IS RECOMMENDED IN PATIENTS WITH LIFETIME RISK OF BREAST CANCER >20% MTDD
== END | disposition home or self-care (01) ==
LOC: RADMRIMAIN 09:35
PROVIDERS: ATTEND Surgery
DX: Z85.3 Personal history of malignant neoplasm of breast
CPT/HCPCS: 77049

== ENCOUNTER → 2024-01-30 | Outpatient (CLI) | payer MEDICARE ==
--- NOTE | 2024-01-30 11:16 | MM ---
Reason for Exam: Follow-up at short interval from prior study. Last screening mammogram was performed 12 month(s) ago. Patient History: Menarche at age 16. First Full-Term at age 21. Hysterectomy at age 66. Postmenopausal. Patient has history of breast feeding. Breast cancer, right, age 66. Previous chest radiation therapy at age 66. Patient used Hormonal Contraceptives for 2 years. 04/23/2021, Lumpectomy on the Right side. 04/23/2021, Malignant Core Biopsy on the right side. 03/15/2021, Malignant Core Biopsy on the right side. Prior Study Comparison: 01/19/2022 Bilateral MG diagnostic mammo w CAD DU, [facility]. 07/27/2022 Right US breast limited RT, [facility]. 07/27/2022 Right MG 3D diag mammo w/cad RT, [facility]. 01/23/2023 Bilateral MG 3D diag mammo w/cad DU, [facility]. 01/13/2024 Bilateral MR breast bilat wo/w con, [facility]. Tissue Density: There are scattered areas of fibroglandular density. Findings: Analyzed By CAD. Stopped changes right breast. No evidence for mass or distortion. No suspicious microcalcifications. Overall Assessment: Benign, BI-RAD 2 Management: Diagnostic Mammogram of both breasts in 1 year. . Results were given to the patient verbally at the time of exam. Patient should continue monthly self-breast exams. A clinical breast exam by your physician is recommended on an annual basis. This exam should not preclude additional follow-up of suspicious palpable abnormalities. Note on Valentine scores and lifetime risk: 1. A Valentine score greater than 3% is considered moderate risk. If this is the case, consider specialist referral to assess eligibility for a risk reducing agent. 2. If overall lifetime risk for the development of breast cancer is 20% or higher, the patient may qualify for future screening with alternating mammogram and breast MRI. [facility], , 01/30/2024 11:09 AM. Electronically signed and approved by: Tesfaye Lane M.D. Radiologis
== END | disposition home or self-care (01) ==
LOC: RADMAMWWP 10:47
PROVIDERS: ATTEND Radiology Radiation Oncology
DX: D05.11 Intraductal carcinoma in situ of right breast
CPT/HCPCS: 77062; 77066

== ENCOUNTER → 2024-03-05 | Outpatient (CLI) | payer MEDICARE ==
--- NOTE | 2024-03-05 17:39 | BD ---
EXAMINATION TYPE: Axial Bone Density DATE OF EXAM: 03/05/2024 CLINICAL HISTORY: 69 years old Female. ICD-10 CODE: M85.88 DISORDER OF BONE , Additional History: Height: 64 Weight: 184.4 FRAX RISK QUESTIONS: Alcohol (3 or more units per day): no Family History (Parent hip fracture): no Glucocorticoids (More than 3mos): yes (Ex: prednisone, prednisolone, methylprednisolone, dexamethasone, and hydrocortisone). History of Fracture in Adulthood: no Secondary Osteoporosis: 1. Type 1 Diabetes: no 2. Hyperthyroidism: no 3. Menopause before 45: no 4. Malnutrition: no 5. Chronic liver disease: no Rheumatoid Arthritis: no Current Tobacco Use: no RISK FACTORS HISTORY OF: Surgery to Spine/Hip(right/left)/Wrist (right/left): no MEDICATIONS: Thyroid Medications: synthroid How Lon plus years EXAM MEASUREMENTS: Bone mineral densitometry was performed using the [employer] System. Bone mineral density as measured about the Lumbar spine is: ----- L1-L4(G/cm2): 1.230 T Score Values are as follows: ----- L1: -0.2 ----- L2: 0.0 ----- L3: 0.8 ----- L4: 0.8 ----- L1-L4: 0.4 Z Score Values are as follows: ----- L1: 0.8 ----- L2: 1.0 ----- L3: 1.8 ----- L4: 1.8 ----- L1-L4: 1.4 Bone mineral density has: increased 2.9 % since study of: 03.04.2022 Bone mineral density about the R hip (g/cm2): 1.056 Bone mineral density about the L hip (g/cm2): 1.062 T Score values are as follows: -----R Neck: -0.6 -----L Neck: -0.5 -----R Total: 0.4 -----L Total: 0.4 Z Score values are as follows: -----R Neck: 0.6 -----L Neck: 0.6 -----R Total: 1.2 -----L Total: 1.3 Bone mineral density has: increased 4.9 % since study of: 03.04.2022 FRAX%s: The graph provided illustrates a 5.0% chance for a major osteoporotic fx and a 0.5% chance fo r the hips probability for fx in 10 years time. IMPRESSION: Normal (Values between +1 and -1 indicate normal bone mass). Consider repeating this study in 5 year s or sooner if there is some new clinical indication. NOTE: T-SCORE=SD OF THE YOUNG ADULT MEAN. [facility], , 03/05/2024 5:36 PM
== END | disposition home or self-care (01) ==
LOC: RADBDWWP 09:36
PROVIDERS: ATTEND Internal Medicine Hematology & Oncology
DX: M85.88 Other specified disorders of bone density and structure, other site (principal); D05.11 Intraductal carcinoma in situ of right breast; J44.9 Chronic obstructive pulmonary disease, unspecified; Z71.3 Dietary counseling and surveillance
CPT/HCPCS: 77080